=== PATIENT | female | born 1955 | race African-American/Black ===

== ENCOUNTER 2019-03-03 13:49 | Emergency (ER) | payer MEDICAID, SELFPAY ==
[~2019-03-03] VITALS: Ht 157.5 cm; Wt 59.0 kg
[~2019-03-03 13:49] MED LIST: HYDROCODON-ACE1 EAC4 ORAL; IBUPROFEN600 MG ORAL; KEFLEX500 MG ORAL; NAPROXEN250 M1 PO; NORCO 5-325 TA1 EACH ORAL; PERCOCET 5-3251 EACH ORAL; PHENERGAN25 M1 ORAL; XANAX0.25 MG ORAL
[2019-03-03 13:50] VITALS: BP 118/67
--- NOTE | 2019-03-03 13:50 | NUR ---
ED Nurse Note: Patient ambulated in to ER from home due to skin rash. Patient alert and oriented x4 and ambulatory. Skin clean and intact. Calm and cooperative. No acute distress noted at this time.
--- NOTE | 2019-03-03 14:20 | Emergency Room Report ---
History of Present Illness General Chief Complaint: Skin Rash/Abscess Source: Patient Present Illness HPI 63-year-old female with no significant past medical history here complaining of 1 day of burning sensation rash on the back of her neck as well as left ankle. Patient denies recent travel or camping. Patient is describing the lesion in the ankle as a bull's-eye rash as that she has consulted with her friend however reports mostly pruritus in the affected side. Denies tingling sensation prior to onset of her symptoms. Denies fever and chills, anaphylaxis , chest pain, shortness of breath, palpitation, nausea vomiting. Has not taken medication for symptom relief. Denies exposure to recent allergens. Allergies: Coded Allergies: ACETAMINOPHEN (Verified Allergy, Unknown, 03/03/19) CODEINE (Verified Allergy, Unknown, 03/03/19) HYDROMORPHONE (Verified Allergy, Unknown, 03/03/19) LATEX, NATURAL RUBBER (Verified Allergy, Unknown, 03/03/19) PENTAZOCINE (Verified Allergy, Unknown, 03/03/19) Patient History Past Medical History: see triage record Past Surgical History: unable to obtain Pertinent Family History: none Now: No Immunizations: UTD Reviewed Nursing Documentation: PMH: Agreed; PSxH: Agreed Nursing Documentation-PMH Past Medical History: No History, Except For Hx Hypertension: Yes Hx Cancer: Yes - breast Review of Systems All Other Systems: negative except mentioned in HPI Physical Exam Vital Signs Date Time Temp Pulse Resp B/P (MAP) Pulse Ox O2 Delivery O2 Flow Rate FiO2 03/03/19 14:05 99.3 67 17 171/81 (111) 95 Room Air Sp02 EP Interpretation: reviewed, normal General Appearance: no apparent distress, alert, GCS 15, non-toxic Head: normocephalic, atraumatic Eyes: bilateral eye normal inspection, bilateral eye PERRL ENT: hearing grossly normal, normal pharynx, no angioedema, normal voice Neck: full range of motion, supple/symm/no masses Cardiovascular #1: regular rate, rhythm, no edema Cardiovascular #2: 2+ carotid (R), 2+ carotid (L), 2+ radial (R), 2+ radial (L) , 2+ dorsalis pedis (R), 2+ dorsalis pedis (L) Gastrointestinal: normal bowel sounds, non tender, soft, non-distended, no guarding, no rebound Rectal: deferred Genitourinary: normal inspection, no CVA tenderness Musculoskeletal: normal inspection, back normal, digits/nails normal Neurologic: alert, oriented x3, responsive, motor strength/tone normal, sensory intact, speech normal Psychiatric: normal inspection, judgement/insight normal Skin: rash - Slightly warm to touch insect bites noted in the back of neck and a non-erythematous rash in the left ankle Lymphatic: no adenopathy Medical Decision Making PA Attestation Diagnosis and treatment plans were reviewed and discussed with my supervising physician Dr. De La Cruz Diagnostic Impression: Primary Impression: Infected insect bite Additional Impressions: Cellulitis Tinea corporis ER Course 63-year-old female with no significant past medical history here complaining of 1 day of burning sensation rash on the back of her neck as well as left ankle. Patient denies recent travel or camping. Patient is describing the lesion in the ankle as a bull's-eye rash as that she has consulted with her friend however reports mostly pruritus in the affected side. Denies tingling sensation prior to onset of her symptoms. Denies fever and chills, anaphylaxis , chest pain, shortness of breath, palpitation, nausea vomiting. Has not taken medication for symptom relief. Denies exposure to recent allergens. Ddx considered but are not limited to: Eczema, scabies, lice, infected insect bite, noninfected insect bite, tinea corporis Vital signs: are WNL, pt. is afebrile H&PE are most consistent with: Tinea corporis, infected insect bite ORDERS: Doxycycline, hydrocortisone cream, Benadryl, Lotrisone cream ED INTERVENTIONS: None required at this time. DISCHARGE: At this time pt. is stable for d/c to home. Will provide printed patient care instructions, and any necessary prescriptions. Care plan and follow up instructions have been discussed with the patient prior to discharge. Due to patient excess concern for Lyme disease doxycycline was given patient to follow-up with a primary care provider however the rash does not resemble Lyme disease. If worsening symptoms return to the emergency room. Last Vital Signs Date Time Temp Pulse Resp B/P (MAP) Pulse Ox O2 Delivery O2 Flow Rate FiO2 03/03/19 14:05 99.3 67 17 171/81 (111) 95 Room Air Disposition: HOME, SELF-CARE Condition: Stable Scripts Diphenhydramine HCl (Benadryl) 25 Mg Capsule 25 MG PO TID, #21 CAP Prov: Mikel Santillan 03/03/19 Clotrimazole/Betamethasone Dip* (LOTRISONE CREAM*) 15 Gm Cream..g. 2 GM TP TWICE A DAY, #15 GM 0 Refills Prov: Mikel Santillan 03/03/19 Hydrocortisone/Aloe Vera 1%* (HYDROCORTISONE-ALOE 1% CREAM*) Y Cr 1 APPLIC TOPIC Q6H PRN for Itching, #30 GM Prov: Mikel Santillan 03/03/19 Doxycycline Hyclate (DOXYCYCLINE HYCLATE) 100 Mg Tablet 100 MG PO BID for 10 Days, #20 TAB Prov: Mikel Santillan 03/03/19 Patient Instructions: Cellulitis, [id number], Insect Bite, [id number] Additional Instructions: Take medication as directed follow-up with your primary care provider if worsening symptoms, fever and chills return to the emergency room Mikel Santillan Mar 03, 2019 14:20
[2019-03-03] MEDS ORDERED: HYDROCORTISONE-30 GM TOPIC (14:22)
[2019-03-03] MEDS ORDERED: DOXYCYCLINE HY100 M6 PO (14:22)
[2019-03-03] MEDS ORDERED: BENADRYL25 M3 PO (14:22)
[2019-03-03] MEDS ORDERED: LOTRISONE CREAM15 GM TP (14:22)
[2019-03-03 14:30] VITALS: BP 166/88
--- NOTE | 2019-03-03 14:30 | NUR ---
ER DISCHARGE NOTE: Patient is cleared to be discharged per ERPA, pt is aox4, on room air, with stable vital signs. pt was given dc and prescription instructions, pt was able to verbalize understanding, pt id band removed. pt is able to ambulate with steady gait. pt took all belongings.
== END 2019-03-03 14:30 | disposition home or self-care (01) ==
LOC: EMR 14:20
DX: S90.562A Insect bite (nonvenomous), left ankle, initial encounter (principal); S10.96XA Insect bite of unspecified part of neck, initial encounter; L03.90 Cellulitis, unspecified; B35.4 Tinea corporis; Z88.6 Allergy status to analgesic agent; Z88.8 Allergy status to other drugs, medicaments and biological substances; Z91.040 Latex allergy status; I10 Essential (primary) hypertension; Z85.3 Personal history of malignant neoplasm of breast; W57.XXXA Bitten or stung by nonvenomous insect and other nonvenomous arthropods, initial encounter; Y92.9 Unspecified place or not applicable
CPT/HCPCS: 99282